=== PATIENT | male | born 1985 | race Caucasian/White ===

== ENCOUNTER 2024-01-08 21:52 | Emergency (ER) | payer OTHER ==
[~2024-01-08] VITALS: Ht 180.3 cm; Wt 81.8 kg
[2024-01-08 22:20] VITALS: TEMP 98.7
[2024-01-08 22:23] VITALS: BP 123/93; PULSE 94; RESP 18
== END 2024-01-08 22:30 | disposition home or self-care (01) ==
LOC: EMS 21:52
DX: S91.031A Puncture wound without foreign body, right ankle, initial encounter (principal); W23.0XXA Caught, crushed, jammed, or pinched between moving objects, initial encounter; Y93.89 Activity, other specified; Y92.89 Other specified places as the place of occurrence of the external cause; Y99.8 Other external cause status
CPT/HCPCS: 99283